=== PATIENT | female | born 1995 | race Caucasian/White ===

== ENCOUNTER 2021-07-13 02:21 | Emergency (ER) | payer MEDICAID ==
[~2021-07-13] VITALS: Ht 165.1 cm; Wt 68.0 kg
[2021-07-13 02:30] VITALS: BP 126/79
--- NOTE | 2021-07-13 02:33 | NUR ---
ABHIJEET A/W BED AMBULATORY
[2021-07-13] MEDS ORDERED: KETOROLAC 15 MG/ML VIAL IM ONE (03:25)
[2021-07-13] MEDS ORDERED: methocarbamoL 500 MG TAB PO SCH (03:25)
--- NOTE | 2021-07-13 05:42 | NUR ---
PT CALLED IN LOBBY AND OUTSIDE WITH NO ANSWER.
--- NOTE | 2021-07-13 05:42 | NUR ---
PATIENT ELOPED FROM FACILITY. DISCHARGE INSTRUCTIONS NOT GIVEN TO PATIENT. DR. grimes NOTIFIED.
== END 2021-07-13 05:42 | disposition left against medical advice (07) ==
LOC: MED 02:21
DX: R07.81 Pleurodynia (principal)
CPT/HCPCS: 96372; 99283; J1885